=== PATIENT | male | born 1940 | race Caucasian/White ===

== ENCOUNTER → 2022-02-08 15:01 | Outpatient (REF) | payer MEDICARE, SELFPAY | LOC: ANHLAB 15:01 | PROVIDERS: PCP Physician Assistant; Visit Provider Nurse Practitioner | DX: C44.319 Basal cell carcinoma of skin of other parts of face (principal); L57.0 Actinic keratosis; C44.311 Basal cell carcinoma of skin of nose; C44.519 Basal cell carcinoma of skin of other part of trunk | CPT/HCPCS: 88305 ==

== ENCOUNTER → 2022-02-22 14:50 | Outpatient (REF) | payer MEDICARE, SELFPAY | LOC: ANHLAB 14:50 | PROVIDERS: PCP Physician Assistant; Visit Provider Nurse Practitioner | DX: L82.1 Other seborrheic keratosis (principal) | CPT/HCPCS: 88305 ==

== ENCOUNTER → 2022-04-11 07:38 | Outpatient (REF) | payer MEDICARE, SELFPAY | LOC: ANHLAB 07:38 | PROVIDERS: PCP Physician Assistant; Visit Provider Nurse Practitioner | DX: C44.319 Basal cell carcinoma of skin of other parts of face (principal); C44.311 Basal cell carcinoma of skin of nose | CPT/HCPCS: 88305; 88331 ==

== ENCOUNTER → 2022-04-18 07:31 | Outpatient (REF) | payer MEDICARE, SELFPAY | LOC: ANHLAB 07:31 | PROVIDERS: PCP Physician Assistant; Visit Provider Nurse Practitioner | DX: C44.319 Basal cell carcinoma of skin of other parts of face (principal); C44.519 Basal cell carcinoma of skin of other part of trunk | CPT/HCPCS: 88305; 88331 ==

== ENCOUNTER 2023-01-19 09:31 | Outpatient (CLI) | payer MEDICARE, SELFPAY ==
--- NOTE | 2023-01-19 | ECHO_ITS ---
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 Summary 1. Complete two-dimensional, color flow and Doppler transthoracic echocardiogram is performed. 2. Left ventricular chamber dimension is normal. 3. Left ventricular systolic function is normal, estimated at 50-55%. 4. The left ventricular diastolic function is grade I diastolic dysfunction. 5. Right ventricular systolic function is normal. 6. Left atrial chamber dimension is severely enlarged. 7. There is moderate mitral valve regurgitation. 8. The aortic root size at the sinus of Valsalva is dilated. Left Ventricle Left ventricular chamber dimension is normal. Left ventricular systolic function is normal, estimated at 50-55%. There is no increased left ventricular wall thickness. The left ventricular diastolic function is grade I diastolic dysfunction. Global longitudinal strain is abnormal at -15 %. Right Ventricle Right ventricular chamber dimension is normal. Right ventricular systolic function is normal. Left Atria Left atrial chamber dimension is severely enlarged. Right Atria Right atrial chamber dimension is normal. Atrial Septum Intact interatrial septum visualized by color flow imaging. Aortic Valve The aortic valve is trileaflet. There is mild aortic valve sclerosis. There is no aortic valve stenosis. There is no aortic valve regurgitation. Pulmonic Valve The pulmonic valve is not well visualized. Mitral Valve There is moderate mitral valve regurgitation. The mitral valve annulus is mildly calcified. Tricuspid Valve There is trace tricuspid valve regurgitation. Pericardium/Pleural There is no pericardial effusion. Aorta The aortic root size at the sinus of Valsalva is dilated. Left Ventricular Outflow Tract Name Value Normal LVOT 2D LVOT Diameter 2.1 cm LVOT Doppler LVOT Peak Gradient 3 mmHg LVOT Mean Gradient 2 mmHg LVOT VTI 21 cm LVOT VTI/AV VTI Ratio 0.9 LVOT Stroke Volume 72 ml LVOT CO 4.0 l/min LVOT CI 1.8 l/min/m2 Pulmonic Valve Name Value Normal RVOT Doppler
== END 2023-01-19 09:32 | disposition home or self-care (01) ==
LOC: ANHCARD 09:33
PROVIDERS: PCP Physician Assistant; Visit Provider Internal Medicine
DX: I25.119 Atherosclerotic heart disease of native coronary artery with unspecified angina pectoris (principal)
CPT/HCPCS: 93306

== ENCOUNTER 2023-04-10 08:00 | Outpatient (NON) | payer MEDICARE, SELFPAY | END 2023-04-10 08:01 | disposition home or self-care (01) | PROVIDERS: PCP Physician Assistant; Visit Provider Nurse Practitioner | DX: C44.311 Basal cell carcinoma of skin of nose (principal) | CPT/HCPCS: 88305 ==

== ENCOUNTER 2023-05-01 13:40 | Outpatient (NON) | payer MEDICARE, SELFPAY | END 2023-05-01 13:41 | disposition home or self-care (01) | LOC: ANHLAB 13:41 | PROVIDERS: PCP Physician Assistant; Visit Provider Nurse Practitioner | DX: C44.311 Basal cell carcinoma of skin of nose (principal); C44.319 Basal cell carcinoma of skin of other parts of face; C44.41 Basal cell carcinoma of skin of scalp and neck | CPT/HCPCS: 88305; 88331 ==